=== PATIENT | female | born 1975 | race Caucasian/White ===

== ENCOUNTER 2023-03-15 13:06 | Outpatient (REF) | payer MEDICARE, MEDICAID, SELFPAY | END 2023-03-15 13:07 | disposition home or self-care (01) | LOC: HO.HOSX 13:06 | PROVIDERS: PCP Family Medicine; Visit Provider Neurological Surgery | DX: Z98.1 Arthrodesis status (principal) | CPT/HCPCS: 72110; 99212 ==

== ENCOUNTER 2023-04-25 11:47 | Outpatient (REF) | payer MEDICARE, MEDICAID, SELFPAY ==
--- NOTE | ~2023-04-25 | MR_ITS ---
EXAMINATION: MR LUMBAR SPINE WITHOUT AND WITH CONTRAST CLINICAL INFORMATION: Arthrodesis. COMPARISON: Plain films of the lumbar spine 03/15/2023. TECHNIQUE: MRI of the lumbar spine was obtained using routine sequences with and without contrast. Intravenous contrast: Gadavist 10 mL FINDINGS: VERTEBRAL BODIES AND PARASPINAL STRUCTURES: There is a mild levoscoliosis. There is a slight retrolisthesis of L5 on S1. There are sequelae of an instrumented posterior decompression and fusion at L5-S1. There are bilateral pedicular screws in L5 and S1 joined by vertical rods, and there is an interbody device at this level. There is disc desiccation at L4-L5. There are degenerative endplate contour changes with predominantly fatty signal at L5-S1. Vertebral body heights are maintained and no fractures are demonstrated. Overall, marrow signal is homogenous and there is no abnormal osseous enhancement. There are bilateral extrarenal pelves. There are bilateral parapelvic renal cysts. There is a small cyst at the upper pole of the right kidney. The uterus is retroverted. There are mild arthropathic changes of the sacroiliac joints. There is a small amount of fluid in the subcutaneous soft tissues in the region of the posterior fusion in the midline dorsally at L5-S1, which does not demonstrate peripheral enhancement and is most consistent with a seroma. CONUS MEDULLARIS AND CAUDA EQUINA: Normal, terminating at the level of T12-L1. There is no abnormal enhancement of the lower thoracic spinal cord, and the cauda equina nerve roots and filum terminale appear normal.. SPINAL LEVELS: T12-L1: The facet joints appear normal bilaterally. Disc contour is normal. There is no central stenosis or foraminal narrowing. L1-L2: There is mild bilateral facet arthropathy with a left facet joint effusion and bilateral ligamenta flava hypertrophy. There is a mild diffuse disc bulge, but there is no central stenosis and the neural foramina are patent bilaterally. L2-L3: There is mild to moderate bilateral facet arthropathy with ligamenta flava hypertrophy and facet joint effusions. Disc contour is normal and there is no central stenosis. The neural foramina are patent bilaterally. L3-L4: There is moderate bilateral facet arthropathy with ligamenta flava hypertrophy. There is a shallow diffuse disc bulge, but there is no central stenosis. The neural foramina are patent bilaterally. L4-L5: There is moderate bilateral facet arthropathy with ligamenta flava hypertrophy and a right facet joint effusion. There is a broad-based posterior disc protrusion with an annular fissure which distorts the ventral thecal sac, but there is no significant central stenosis. There is a small right foraminal disc protrusion without definite exiting nerve root impingement. L5-S1: There are sequelae of an instrumented posterior decompression and fusion, and there appear to be sequelae of a left hemilaminectomy. There are bilateral facet arthropathic changes. There is a posterior residual disc protrusion with an annular fissure, without mass effect on the thecal sac. There are bilateral foraminal disc protrusions impinging on the exiting L5 nerve roots. There is no central stenosis. MR/MR lumbar spine wo/w con IMPRESSION: 1. There are sequelae of an instrumented posterior decompression and fusion at L5-S1, and a possible left hemilaminectomy. There are bilateral foraminal disc protrusions impinging on the exiting L5 nerve roots. There is no central stenosis. 2. At L4-L5 there is facet arthropathy and there is a broad-based posterior disc protrusion. There is no central stenosis. There is a small right foraminal disc protrusion without definite exiting nerve root impingement. 3. There is a small amount of subcutaneous and is fluid at the level of L5-S1 posterior to the surgery, which may be consistent with a small seroma. 4. Milder spondylitic and facet arthropathic changes are demonstrated at other levels as described above.
== END 2023-04-25 11:48 | disposition home or self-care (01) ==
LOC: HO.MRI 11:47
PROVIDERS: PCP Family Medicine; Visit Provider Neurological Surgery
DX: Z98.1 Arthrodesis status (principal)
CPT/HCPCS: 72158; A9585

== ENCOUNTER 2023-05-03 14:10 | Outpatient (AMB) | payer MEDICARE, MEDICAID, SELFPAY ==
--- NOTE | 2023-05-03 14:20 | A.SPINEOV_ITS ---
Intake Intake Visit Reasons: f/up after MRI Intake Note: Ms. Betancourt is here today for the results of her MRI. Immigration Paralegal Required: No Assessment & Plan Assessment & Plan (1) Status post lumbar spinal arthrodesis: Code(s): Z98.1 - Arthrodesis status (2) Failed back surgical syndrome: Code(s): M96.1 - Postlaminectomy syndrome, not elsewhere classified Plan Dear?colleague On?05/03/2023,?I?saw?for?follow-up?of?Susana?Serafin. ?She?is?a?47-year-old?female?that?is?suffering?from ?chronic?intractable?low?back?pain?despite?an?L5- S1?fusion.??A?repeat?MRI?shows?no?need?for?additional?surgery.??I?would?like?to? refer?her?to?Pain?Management (Dr. Johnson)?to?see?if?she?is?a?candidate?f or?a?Sprint device?to?address?her?back?pain. Konrad?Alli??,?PhD Spine?Fellowship?Trained?Neurosurgeon Director,?[facility]? [facility]? Coding Level of Care Code Est Pt Level 2 (49872) Diagnoses Status post lumbar spinal arthrodesis Z98.1 Failed back surgical syndrome M96.1
--- NOTE | 2023-05-03 14:20 | HO.SPINEOV ---
Intake Intake Visit Reasons: f/up after MRI Intake Note: Ms. Betancourt is here today for the results of her MRI. Sweet Potato Disintegrator Required: No Assessment & Plan Assessment & Plan (1) Status post lumbar spinal arthrodesis: Code(s): Z98.1 - Arthrodesis status (2) Failed back surgical syndrome: Code(s): M96.1 - Postlaminectomy syndrome, not elsewhere classified Plan Dear?colleague On?05/03/2023,?I?saw?for?follow-up?of?Susana?Serafin. ?She?is?a?47-year-old?female?that?is?suffering?from?chronic?intractable?low?back?pain?despite?an?L5-S1?fusion.??A?repeat?MRI?shows?no?need?for?additional?surgery.??I?would?like?to?refer?her?to?Pain?Management (Dr. Johnson)?to?see?if?she?is?a?candidate?for?a?Sprint device?to?address?her?back?pain. Konrad?Alli??,?PhD Spine?Fellowship?Trained?Neurosurgeon Director,?[facility]? [facility]? Coding Level of Care Code Est Pt Level 2 (49627) Diagnoses Status post lumbar spinal arthrodesis Z98.1 Failed back surgical syndrome M96.1
== END 2023-05-03 14:58 | disposition home or self-care (01) ==
PROVIDERS: PCP Family Medicine; Visit Provider Neurological Surgery
DX: Z98.1 Arthrodesis status (principal); M96.1 Postlaminectomy syndrome, not elsewhere classified
CPT/HCPCS: 99212

== ENCOUNTER → 2023-05-03 14:10 | Outpatient (BNVA) | payer MEDICARE, MEDICAID, SELFPAY | PROVIDERS: PCP Family Medicine; Visit Provider Neurological Surgery | DX: M96.1 Postlaminectomy syndrome, not elsewhere classified (principal); Z98.1 Arthrodesis status | CPT/HCPCS: 99212 ==

== ENCOUNTER 2023-05-23 08:19 | Outpatient (AMB) | payer MEDICARE, MEDICAID, SELFPAY ==
--- NOTE | 2023-05-23 08:35 | MHC.OFFVIS ---
Intake Vital Signs 05/23/23 08:37 Height 5 ft 6.5 in Weight 267 lb BMI 42.4 BP 186/93 H Blood Pressure Location Lt radial Position Sitting Respiration 14 Pulse 65 Pulse Source Pulse Oximeter Intake Visit Reasons: Postlaminectory syndrome, not elsewhere classified Allergies codeine Adverse Reaction (Severe, Verified 05/23/23 08:39) N/V morphine Adverse Reaction (Severe, Verified 05/23/23 08:39) N/V Medication List - Last Reconciled 05/23/23 by Chaparrita Coulter LPN acetaminophen 500 - 1,000 mg PO TID PRN furosemide 20 mg PO DAILY hydrocodone-acetaminophen 5-325 mg 1 tab PO levothyroxine 125 mcg PO DAILY loratadine 10 mg PO DAILY omeprazole 20 mg PO DAILY HPI Postlaminectory syndrome, not elsewhere classified HPI Details 47-year-old female who presents today to the office as a new patient evaluation for postlaminectomy syndrome. The patient underwent L5-S1 fusion with Dr. Carson on 04/04/2019. She continues to have back pain despite adequate fusion. The pain is located in the thoracic, lumbar and sacral area and radiates into the legs occasionally. She has difficulty sleeping and performing activities. She states that she can hardly get up in the morning due to pain. She states that her back pain started in her mid-20s and started worsening in recent years. She has taken ibuprofen in the past with no relief. She has tried multiple injections and medications in the past with no relief. She had visited a chiropractor manipulations in the past with moderate benefits. She tried physical therapy after her back surgery in the past. She is trying to remain physically active and lose weight at home however these have been limited by her significant low back pain. She is not sure about taking pregabalin in the past and will confirm it with her provider. Review of Systems Const All systems reviewed & are unremarkable except as noted in HPI and below Physical Exam Vital Signs: Last Vital Signs Pulse 65 05/23/23 08:37 Resp 14 05/23/23 08:37 BP 186/93 H 05/23/23 08:37 BMI result Body Mass Index 42.4 General: Appears afebrile. Alert and oriented. Mood and affect appropriate. Follows and participates in conversation appropriately. Respiratory effort is unlabored. Able to transition from sit to stand unassisted. Ambulates with bilaterally normal heel strike and toe off. Well-healed incision in the lumbar midline. Exquisite superficial tenderness to palpation over the thoracic midline spine as well as overlying the lumbar midline, especially around the incision. Results Reviewed Results Reviewed: 04/25/23: MR LUMBAR SPINE WITHOUT AND WITH CONTRAST FINDINGS: VERTEBRAL BODIES AND PARASPINAL STRUCTURES: There is a mild levoscoliosis. There is a slight retrolisthesis of L5 on S1. There are sequelae of an instrumented posterior decompression and fusion at L5-S1. There are bilateral pedicular screws in L5 and S1 joined by vertical rods, and there is an interbody device at this level. There is disc desiccation at L4-L5. There are degenerative endplate contour changes with predominantly fatty signal at L5-S1. Vertebral body heights are maintained and no fractures are demonstrated. Overall, marrow signal is homogenous and there is no abnormal osseous enhancement. There are bilateral extrarenal pelves. There are bilateral parapelvic renal cysts. There is a small cyst at the upper pole of the right kidney. The uterus is retroverted. There are mild arthropathic changes of the sacroiliac joints. There is a small amount of fluid in the subcutaneous soft tissues in the region of the posterior fusion in the midline dorsally at L5-S1, which does not demonstrate peripheral enhancement and is most consistent with a seroma. CONUS MEDULLARIS AND CAUDA EQUINA: Normal, terminating at the level of T12-L1. There is no abnormal enhancement of the lower thoracic spinal cord, and the cauda equina nerve roots and filum terminale appear normal.. SPINAL LEVELS: T12-L1: The facet joints appear normal bilaterally. Disc contour is normal. There is no central stenosis or foraminal narrowing. L1-L2: There is mild bilateral facet arthropathy with a left facet joint effusion and bilateral ligamenta flava hypertrophy. There is a mild diffuse disc bulge, but there is no central stenosis and the neural foramina are patent bilaterally. L2-L3: There is mild to moderate bilateral facet arthropathy with ligamenta flava hypertrophy and facet joint effusions. Disc contour is normal and there is no central stenosis. The neural foramina are patent bilaterally. L3-L4: There is moderate bilateral facet arthropathy with ligamenta flava hypertrophy. There is a shallow diffuse disc bulge, but there is no central stenosis. The neural foramina are patent bilaterally. L4-L5: There is moderate bilateral facet arthropathy with ligamenta flava hypertrophy and a right facet joint effusion. There is a broad-based posterior disc protrusion with an annular fissure which distorts the ventral thecal sac, but there is no significant central stenosis. There is a small right foraminal disc protrusion without definite exiting nerve root impingement. L5-S1: There are sequelae of an instrumented posterior decompression and fusion, and there appear to be sequelae of a left hemilaminectomy. There are bilateral facet arthropathic changes. There is a posterior residual disc protrusion with an annular fissure, without mass effect on the thecal sac. There are bilateral foraminal disc protrusions impinging on the exiting L5 nerve roots. There is no central stenosis. IMPRESSION: 1. There are sequelae of an instrumented posterior decompression and fusion at L5-S1, and a possible left hemilaminectomy. There are bilateral foraminal disc protrusions impinging on the exiting L5 nerve roots. There is no central stenosis. 2. At L4-L5 there is facet arthropathy and there is a broad-based posterior disc protrusion. There is no central stenosis. There is a small right foraminal disc protrusion without definite exiting nerve root impingement. 3. There is a small amount of subcutaneous and is fluid at the level of L5-S1 posterior to the surgery, which may be consistent with a small seroma. 4. Milder spondylitic and facet arthropathic changes are demonstrated at other levels as described above. 03/15/23: XR LUMBOSACRAL SPINE WITH OBLIQUES FINDINGS: L5-S1 transpedicular screws, posterior surgical stabilizing hardware and intervertebral body are seen. No radiographic evidence of loosening. Likely associated bone grafting. 5 lumbar type vertebral bodies are identified and are maintained in height. Disc spaces through L4-L5 are preserved. Visualized pedicles are intact and SI joints within normal limits. Left hemipelvic densities may be external to the patient. Surgical clips are seen. IMPRESSION: L5-S1 postsurgical changes. 02/19/22: CT scan LUMBAR SPINE WO Assessment & Plan Assessment & Plan (1) Seroma, post-traumatic: Code(s): T79.2XXA - Traumatic secondary and recurrent hemorrhage and seroma, initial encounter (2) Status post lumbar spinal arthrodesis: Code(s): Z98.1 - Arthrodesis status Plan Patient with a history of L5-S1 fusion now with thoracolumbar back pain with occasional radiation into lower extremities. Her most bothersome symptom is pain in the midline of her thoracolumbar spine which is exquisitely painful on palpation. She does have a seroma underlying this area of exquisite tenderness with peripheral enhancement on her MRI. I discussed gentle massage associated with weight loss and exercises as potential options for decreasing symptoms from this seroma. I also discussed trialing pregabalin to decrease peripheral sensitivity. If these are not helpful, we can consider a subcutaneous infiltration of corticosteroid under ultrasound guidance, but the patient is not interested in any interventional therapies at this time. She will follow-up as needed once she has tried the interventions that were discussed today. I do not think she would benefit from peripheral or central stimulation therapies at this time given the nature of her symptoms and exam findings. If in the future she starts to develop pain that is more consistent with post-laminectomy syndrome, we can consider a trial of lumbar spinal cord stimulation. Scribed for Dr. Johnson by Rodney Maldonado, clinical medical assistant, on 05/23/2023. I, Dr. Johnson, have personally reviewed and agree with the information entered by the scribe. Coding Level of Care Code New Pt Level 4 (36819) Diagnoses Seroma, post-traumatic T79.2XXA Status post lumbar spinal arthrodesis Z98.1
[2023-05-23 08:37] VITALS: BP 186/93; PULSE 65; RESP 14; BMI 42.4
== END 2023-05-23 10:02 | disposition home or self-care (01) ==
PROVIDERS: PCP Family Medicine; Visit Provider Internal Medicine
DX: T79.2XXA Traumatic secondary and recurrent hemorrhage and seroma, initial encounter (principal); Z98.1 Arthrodesis status
CPT/HCPCS: 99204

== ENCOUNTER → 2023-05-23 08:19 | Outpatient (BNVA) | payer MEDICARE, MEDICAID, SELFPAY | PROVIDERS: PCP Family Medicine; Visit Provider Internal Medicine | DX: M96.1 Postlaminectomy syndrome, not elsewhere classified (principal); T79.2XXA Traumatic secondary and recurrent hemorrhage and seroma, initial encounter; Z98.1 Arthrodesis status | CPT/HCPCS: 99202 ==

== ENCOUNTER 2024-04-09 14:06 | Outpatient (AMB) | payer MEDICARE, MEDICAID, SELFPAY ==
--- NOTE | 2024-04-09 14:38 | HO.SPINEOV ---
Intake Visit Reasons: Back pain Intake Note: Ms. Betancourt is here today c/o back pain. Dry Press Operator Helper Required: No Allergies codeine Adverse Reaction (Severe, Verified 05/23/23 08:39) N/V morphine Adverse Reaction (Severe, Verified 05/23/23 08:39) N/V Assessment & Plan Assessment & Plan (1) Failed back surgical syndrome: Code(s): M96.1 - Postlaminectomy syndrome, not elsewhere classified Category: Medical Plan Ms Betancourt is back to see us in follow-up. She is describing a new pain today that started over the last few years. She has been dealing with knee issues and ultimately ended up undergoing a left knee replacement. But along the way, and during the recovery she has noticed an increase in lower thoracic spine pain. No myelopathic symptoms to report. She has been dealing with it with narcotics and trying to avoid strenuous activities but in general these things have not been helpful. Her neurological examination is normal. She has a well healed scar in her left knee. I discussed with her the fact that I think this is probably somehow positional related to her knee replacement causing either a leg length discrepancy or the compensation for the surgery is given her the back pain in the midthoracic spine. I will get an MRI just to reassure her but I do not think it is going to end up being anything surgical. Total amount of time spent in this visit was 20 minutes in discussion of symptoms, ordering imaging and subsequent plan of care Zhen Carson MD,PhD [facility] Orders: Orders MR thoracic spine wo con Today M96.1 - Postlaminectomy syndrome, not elsewhere classified Coding Level of Care Code Est Pt Level 3 (20153) Diagnoses Failed back surgical syndrome M96.1
== END 2024-04-09 16:15 | disposition home or self-care (01) ==
PROVIDERS: PCP Family Medicine; Visit Provider Physician Assistant
DX: M96.1 Postlaminectomy syndrome, not elsewhere classified (principal)
CPT/HCPCS: 99213

== ENCOUNTER → 2024-04-09 14:06 | Outpatient (BNVA) | payer MEDICARE, MEDICAID, SELFPAY | PROVIDERS: PCP Family Medicine; Visit Provider Physician Assistant | DX: M96.1 Postlaminectomy syndrome, not elsewhere classified (principal) | CPT/HCPCS: 99212 ==